=== PATIENT | female | born 1950 | race Hispanic/Latino ===

== ENCOUNTER 2018-02-04 09:25 | Outpatient (CLI) | payer MEDICARE, OTHER ==
--- NOTE | 2018-02-08 09:11 | PET Report ---
PET SB TO MT INITIAL: HISTORY: right middle lobe and right lower lobe pulmonary nodules. TECHNIQUE: 14.7 millicuries F-18 FDG was administered intravenously. Noncontrast CT images and PET images were obtained from the skull base to the proximal thighs. Fused images were reviewed on a workstation. The patient's blood glucose level measured 120. COMPARISON: None at this facility. FINDINGS: BRAIN: physiologic FDG uptake in the imaged brain. NECK: physiologic FDG uptake. MEDIASTINUM: physiologic FDG uptake. LUNGS: Healing fractures with callus formation are identified in right lateral ribs 4-7 and the inferior tip of the right scapula. Less likely this could represent surgical changes. Multiple, bilateral pulmonary nodules are identified. A 5 mm nodule is identified at the right apex. A 5 mm nodule is identified in the superior segment of the right lower lobe. A 1.1 cm nodule is identified in the lower right upper lobe. A 1.5 cm subpleural nodule is identified in the lateral right lower lobe adjacent to the right seventh rib fracture. A 6 mm lingular nodular is identified. A 5 mm left lower lobe nodule is identified. Only one of these nodules demonstrates increased metabolic activity. The 1.5 cm nodule in the lateral right lower lobe demonstrates a max SUV of 3.9. The remaining nodules are hypometabolic. PLEURA/PERICARDIUM: physiologic FDG uptake. THORACIC LYMPH NODES: physiologic FDG uptake. HEPATOBILIARY: physiologic FDG uptake. Mean liver SUV measures 3.5. PANCREAS: physiologic FDG uptake. SPLEEN: physiologic FDG uptake. ADRENAL GLANDS: physiologic FDG uptake. KIDNEYS/RENAL COLLECTING SYSTEMS: physiologic FDG uptake. BOWEL/MESENTERY: physiologic FDG uptake. PELVIC VISCERA: physiologic FDG uptake. ABDOMINAL/PELVIC LYMPH NODES: physiologic FDG uptake. MUSCULOSKELETAL: There is mild radiotracer uptake in the right lateral rib fractures and scapular fracture with max SUV measuring less than 2.5. No metastatic pattern to the bones is suspected. Bilateral hip replacements generate artifact in the pelvis. IMPRESSION: Bilateral pulmonary nodules are identified as outlined above. There is one nodule in the lateral segment of the right lower lobe measuring 1.5 cm which demonstrates mild hypermetabolic activity with SUV measuring 3.9. This is adjacent to a right lateral seventh rib fracture. It is unclear if this is secondary to trauma or inflammation. Neoplasm cannot be entirely excluded although it is thought less likely. Consider surveillance with CT chest with contrast. This nodule is not accessible to CT-guided percutaneous biopsy due to its location.
== END 2018-02-04 09:26 | disposition home or self-care (01) ==
LOC: PET 09:25
PROVIDERS: ATTEND Internal Medicine Critical Care Medicine
DX: S22.31XD Fracture of one rib, right side, subsequent encounter for fracture with routine healing (principal); S42.101D Fracture of unspecified part of scapula, right shoulder, subsequent encounter for fracture with routine healing; J18.1 Lobar pneumonia, unspecified organism; D64.9 Anemia, unspecified; G25.81 Restless legs syndrome; R91.8 Other nonspecific abnormal finding of lung field; X58.XXXD Exposure to other specified factors, subsequent encounter
CPT/HCPCS: 36415; 78815; 82728; 82962; A9552

== ENCOUNTER 2019-03-16 13:31 | Outpatient (CLI) | payer MEDICARE ==
--- NOTE | 2019-03-16 16:09 | XRay Report ---
XRAY CHEST TWO VIEWS: 03/16/19 13:31:00 CLINICAL: Cough and wheezing. COMPARISON: PET/CT 02/04/18. No comparison chest x-ray. FINDINGS: Normal heart and pulmonary vasculature. A low-density round noncalcified nodule in the mid right lung correlates with a previously identified 1.1 cm nodule on the previous CT. It appears smaller on this exam. A 2-3 mm noncalcified left lower lobe nodule also correlates with a previously identified left lower lobe nodule. No airspace disease or pleural effusion.The bones and soft tissues are unremarkable. IMPRESSION: No acute cardiopulmonary process and no pneumonia. Bilateral lung nodules correlate with previously identified lung nodules.
== END 2019-03-16 13:32 | disposition home or self-care (01) ==
LOC: SPVIMAG 13:31
PROVIDERS: ATTEND Internal Medicine Hematology & Oncology
DX: R91.8 Other nonspecific abnormal finding of lung field (principal)
CPT/HCPCS: 71046